=== PATIENT | male | born 1990 | race African-American/Black ===

== ENCOUNTER 2017-02-26 01:51 | Emergency (ER) | payer SELFPAY ==
[2017-02-26 01:58] VITALS: BP 135/80
[2017-02-26] MEDS ORDERED: Lidocaine 1% 20 ML MDV ONE (02:01)
[2017-02-26] MEDS ORDERED: Bacitracin Oint 1 GM U/D Packet TOP ONE (02:09)
[2017-02-26] MEDS ORDERED: Lidocaine 1% 20 ML MDV INJECT ONE (02:09)
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
== END 2017-02-26 03:12 | disposition home or self-care (01) ==
LOC: MW.ED 01:51
DX: S06.0X0A Concussion without loss of consciousness, initial encounter (principal); S01.511A Laceration without foreign body of lip, initial encounter; F17.210 Nicotine dependence, cigarettes, uncomplicated; X58.XXXA Exposure to other specified factors, initial encounter
CPT/HCPCS: 12011; 99283; 99284

== ENCOUNTER 2017-03-31 07:05 | Emergency (ER) | payer SELFPAY ==
[2017-03-31] MEDS ORDERED: Ondansetron 4 MG Tab.DIS PO ONE (07:23)
[2017-03-31] MEDS ORDERED: Sodium Chloride 0.9% 1,000 ML IV ONE ×2 (07:30→08:41)
[2017-03-31] MEDS ORDERED: Sodium Chloride 0.9% 2.5 ML Syringe FLUSH PRN (07:30)
[2017-03-31] MEDS ORDERED: Ondansetron 4 MG/2 ML SDV IVPUSH ONE (07:30)
[2017-03-31] MEDS ORDERED: Sodium Chloride 0.9% 10 ML Syringe FLUSH PRN (07:30)
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
[2017-03-31 10:16] VITALS: BP 122/74
== END 2017-03-31 10:12 | disposition home or self-care (01) ==
LOC: MW.ED 07:05
DX: K29.20 Alcoholic gastritis without bleeding (principal); F10.120 Alcohol abuse with intoxication, uncomplicated; F17.210 Nicotine dependence, cigarettes, uncomplicated
CPT/HCPCS: 96360; 96361; 99284; A9270; J2405; J7040; 99283